=== PATIENT | female | born 1935 | race Caucasian/White ===

== ENCOUNTER 2020-11-22 07:26 | Emergency (ER) | payer OTHER, BC ==
[2020-11-22 07:37] VITALS: BP 161/70; PULSE 76; TEMP 98.4; BMI 20.5
[2020-11-22] MEDS ORDERED: diazePAM 2 MG TABLET PO ONE (08:15)
[2020-11-22] MEDS ORDERED: LIDOCAINE 5% TOPICAL PATCH TP ONE (08:15)
[2020-11-22] MEDS ORDERED: ACETAMINOPHEN 325 MG TABLET (FP) PO ONE (08:15)
[2020-11-22 09:39] LABS: EPITHELIAL CELLS FEW /hpf
[2020-11-22] MEDS ORDERED: LIDOCAINE PATCH REMOVAL MC ONE (22:00)
== END 2020-11-22 10:05 | disposition home or self-care (01) ==
LOC: FER 07:26
DX: M54.50 Low back pain, unspecified (principal)
CPT/HCPCS: 72100-TC-FY; 81003; 81015; 87086; 87186; 99284-25